=== PATIENT | female | born 1990 | race Caucasian/White ===

== ENCOUNTER → 2017-03-22 | Outpatient (CLI) | payer OTHER ==
--- NOTE | 2017-03-22 14:48 | RAD ---
EXAM: Left breast ultrasound. HISTORY: Left breast tenderness about the nipple and superolaterally. COMPARISON: None. FINDINGS: Sonographic evaluation was performed from the level through the 3:00 position of clinical concern. The exam was also scanned. This reveals only normal appearing dense breast parenchyma. There is no suspicious sonographic finding or pathologic correlate for tenderness. IMPRESSION: 1. BI-RADS Category 1: Negative. 2. Recommend ongoing clinical follow-up of breast tenderness.
== END | disposition home or self-care (01) ==
LOC: US 13:02
PROVIDERS: ATTEND Advanced Practice Midwife
DX: N64.4 Mastodynia (principal); N63.20 Unspecified lump in the left breast, unspecified quadrant
CPT/HCPCS: 76641

== ENCOUNTER → 2017-06-15 | Outpatient (CLI) | payer OTHER ==
--- NOTE | 2017-06-15 12:15 | RAD ---
Complete abdominal ultrasound 06/15/2017 Indication: Intermittent right-sided abdominal pain for months Comparison study: None available Discussion: Ultrasound evaluation of the abdomen was performed. Static images are submitted to PACS. Visualized portions of the pancreas are unremarkable. As portions of the aorta and IVC are unremarkable. Gallbladder is normal in appearance without evidence of wall thickening, stones, or sludge. The liver is unremarkable in appearance. Portal venous flows in the normal direction. Common bile duct is nondilated at 3 mm. No focal hepatic lesions are seen. The liver measures 16 cm longitudinally which is within normal limits. The right kidney is normal appearance measuring 11.2 cm in length. Left kidney is normal in appearance measuring 10.5 cm in length. The spleen is normal in size measuring 9.5 cm longitudinally. A few small scattered calcified splenic granulomata noted. Impression: Normal sonographic appearance of the abdomen
== END | disposition home or self-care (01) ==
LOC: US 11:25
PROVIDERS: ATTEND Advanced Practice Midwife
DX: R10.9 Unspecified abdominal pain (principal)
CPT/HCPCS: 76700

== ENCOUNTER 2018-09-19 10:50 | Emergency (ER) | payer OTHER ==
[2018-09-19] MEDS ORDERED: MECL25TA3 PO (11:22)
[2018-09-19] MEDS ORDERED: NEOM10SO7 AS (11:22)
--- NOTE | 2018-09-19 11:22 | PHYS DOC ---
Past History Past Medical History: GERD Past Surgical History: No Surgical History Smoking: Non-smoker Alcohol Use: None Drug Use: None Adult General Chief Complaint Chief Complaint: EARACHE/EAR PAIN HPI HPI Patient is a 28 year old female who presents with complaint of left ear pain. Patient states that she has been having drainage and pain in the left ear of the past 2 days, however she notes that this has been a recurrent issue. Patient states several years ago she experienced sudden pain and drainage from the left ear. She states that since then she has had recurrent episodes of left ear drainage and fullness. States that she has had decreased hearing from the left ear since this occurred. He notes that she has had problems with drainage related to nasal congestion and allergy symptoms. States that they have worsened again over the past 2 days. Notes that the drainage is clear but can be yellowish at times. Has not followed with a physician since the original episode occurred. Denies any other significant past medical history. Patient notes that she has had fullness in the left ear and slight dizziness. No fever. Review of Systems Review of Systems Constitutional: Denies fever or chills [] Eyes: Denies change in visual acuity, redness, or eye pain [] HENT: Left ear pain, left ear drainage, nasal congestion[] Respiratory: Denies cough or shortness of breath [] Cardiovascular: Denies chest pain or edema[] GI: Denies abdominal pain, nausea, vomiting, bloody stools or diarrhea [] : Denies dysuria or hematuria [] Musculoskeletal: Denies back pain or joint pain [] Integument: Denies rash or skin lesions [] Neurologic: Denies headache, focal weakness or sensory changes [] All other systems were reviewed and found to be within normal limits, except as documented in this note. Allergies Allergies Allergies Coded Allergies Type Severity Reaction Last Updated Verified calamine Allergy Unknown 09/19/18 Yes dextromethorphan Allergy Unknown 09/19/18 Yes hydrocodone Allergy Unknown 09/19/18 Yes latex Allergy Unknown 09/19/18 Yes Uncoded Allergies Type Severity Reaction Last Updated Verified UNKNOWN ANTIBIOTICS Allergy Unknown Itching 09/19/18 Physical Exam Physical Exam Constitutional: Well developed, well nourished, no acute distress, non-toxic appearance. [] HENT: Normocephalic, atraumatic, bilateral external ears normal, left ear canal with mild edema, erythema present, left TM appears distorted but intact, clear l eft middle ear effusion present, right ear canal and TM normal, oropharynx moist, no oral exudates, nose normal. [] Eyes: PERRLA, EOMI, conjunctiva normal, no discharge. [] Neck: Normal range of motion, no tenderness, supple, no stridor. [] Cardiovascular:Heart rate regular rhythm, no murmur [] Lungs & Thorax: Bilateral breath sounds clear to auscultation [] Abdomen: Bowel sounds normal, soft, no tenderness, no masses, no pulsatile masses. [] Skin: Warm, dry, no erythema, no rash. [] Back: No tenderness, no CVA tenderness. [] Extremities: No tenderness, no cyanosis, no clubbing, ROM intact, no edema. [] Neurologic: Alert and oriented X 3, normal motor function, normal sensory function, no focal deficits noted. [] Current Patient Data Vital Signs Vital signs were reviewed and are stable Lab Results Not performed EKG EKG Not performed[] Radiology/Procedures Radiology/Procedures Not performed[] Course & Med Decision Making Course & Med Decision Making Pertinent Labs and Imaging studies reviewed. (See chart for details) Patient's exam shows evidence of acute otitis externa as well as a serous otitis media. Patient will be started on Cortisporin ear drops. Also prescribed meclizine to help with vertigo symptoms. Advised daily use of Zyrtec or Kylah to help reduce mucous production and allergy symptoms. Patient was referred to Dr. Geri Avery of ENT for follow-up in 1-2 weeks for formal and comprehensive evaluation of the recurrent left ear infections. Advised return to emergency department for any worsening symptoms. Patient was understanding and in agreement with treatment plan.[] Dragon Disclaimer Dragon Disclaimer This electronic medical record was generated, in whole or in part, using a voice recognition dictation system. Departure Departure: Impression: Primary Impression: Otitis externa Additional Impression: Serous otitis media Disposition: 01 HOME, SELF-CARE Condition: STABLE Referrals: Lucy Avery MD PCP,NO (PCP) Patient Instructions: Otitis Externa, Otitis Media with Effusion Additional Instructions: Follow-up with Dr. Avery in 1-2 weeks for further evaluation of your recurrent left ear infections. Return to the emergency department for any worsening symptoms. Scripts Meclizine Hcl (MECLIZINE HCL) 25 Mg Tablet 1 TAB PO TID PRN for DIZZINESS, #30 TAB Prov: PINKY POSEY MD 09/19/18 Neomycin/Polymyxin B Sulf/Hc (IDLBKHRH-SPCIOPHTE-OV EAR SOLN) 10 Ml Solution 4 DRP QID for 7 Days, #10 ML Prov: PINKY POSEY MD 09/19/18 Problem Qualifiers Primary Impression: Otitis externa Otitis externa type: unspecified type Chronicity: unspecified Laterality: left Qualified Codes: H60.92 - Unspecified otitis externa, left ear Additional Impression: Serous otitis media Chronicity: unspecified Laterality: left Qualified Codes: H65.92 - Unspecified nonsuppurative otitis media, left ear PINKY POSEY MD September 19, 2018 11:22
[2018-09-19 11:35] VITALS: BP 98/51
== END 2018-09-19 11:35 | disposition home or self-care (01) ==
LOC: ER 10:50
DX: H60.92 Unspecified otitis externa, left ear (principal); H65.92 Unspecified nonsuppurative otitis media, left ear; K21.9 Gastro-esophageal reflux disease without esophagitis; Z88.5 Allergy status to narcotic agent; Z91.040 Latex allergy status; Z88.8 Allergy status to other drugs, medicaments and biological substances
CPT/HCPCS: 99283

== ENCOUNTER 2018-12-09 15:56 | Emergency (ER) | payer OTHER ==
[~2018-12-09] VITALS: Ht 175.3 cm; Wt 75.3 kg
[~2018-12-09 15:56] MED LIST: MECL25TA3 PO; NEOM10SO7 AS
[2018-12-09 16:09] VITALS: BP 109/64
[2018-12-09] MEDS ORDERED: SMZ/TMP 800/160MG TABLET. PO ONE (17:00)
[2018-12-09] MEDS ORDERED: SULF1TAB24 PO (17:02)
[2018-12-09] MEDS ORDERED: DICL50TA4 PO (17:02)
--- NOTE | 2018-12-09 17:02 | PHYS DOC ---
Past History Past Medical History: No Pertinent History, GERD Past Surgical History: Tonsillectomy, Other Smoking: Non-smoker Alcohol Use: None Drug Use: None Adult General Chief Complaint Chief Complaint: SKIN RASH/ABSCESS HPI HPI Patient is a 28-year-old female who presents with complaint of painful skin le jeanie to her left posterior shoulder. She states that initially it started out like a small pimple but then grew in size and became painful. She states that she mashed a lot last night and a lot of pus and blood came out of it. She states that it is still painful and hard to the touch[] Review of Systems Review of Systems Constitutional: Denies fever or chills [] Respiratory: Denies cough or shortness of breath [] Cardiovascular: No additional information not addressed in HPI [] Integument: Positive abscess[] Current Medications Current Medications Current Medications Medications (Trade) Dose Ordered Sig/Bogdan Start Time Stop Time Status Last Admin Dose Admin Trimethoprim/ Sulfamethoxazole (Bactrim Ds) 1 tab 1X ONCE 12/09/18 17:00 12/09/18 17:01 Allergies Allergies Allergies Coded Allergies Type Severity Reaction Last Updated Verified calamine Allergy Unknown 09/19/18 Yes dextromethorphan Allergy Unknown 09/19/18 Yes hydrocodone Allergy Unknown 09/19/18 Yes latex Allergy Unknown 09/19/18 Yes Uncoded Allergies Type Severity Reaction Last Updated Verified UNKNOWN ANTIBIOTICS Allergy Unknown Itching 09/19/18 Physical Exam Physical Exam Constitutional: Well developed, well nourished, no acute distress, non-toxic appearance. [] Cardiovascular:Heart rate regular rhythm, no murmur [] Lungs & Thorax: Bilateral breath sounds clear to auscultation [] Skin: Left posterior shoulder demonstrates an area measuring approximately 2 x 3 cm with redness, induration, tenderness and warmth. There is no fluctuance on exam. [] Current Patient Data Vital Signs Vital Signs Date Time Temp Pulse Resp B/P (MAP) Pulse Ox O2 Delivery O2 Flow Rate FiO2 12/09/18 16:09 98.1 70 18 100 Room Air EKG EKG [] Radiology/Procedures Radiology/Procedures [] Course & Med Decision Making Course & Med Decision Making Pertinent Labs and Imaging studies reviewed. (See chart for details) [] Dragon Disclaimer Dragon Disclaimer This electronic medical record was generated, in whole or in part, using a voice recognition dictation system. Departure Departure: Impression: Primary Impression: Abscess Disposition: 01 HOME, SELF-CARE Condition: STABLE Referrals: PCP,NO (PCP) Patient Instructions: Abscess Scripts Diclofenac Sodium (DICLOFENAC SODIUM) 50 Mg Tablet.dr 1 TAB PO BID PRN for PAIN, #20 TAB Prov: PRIMO WOODY Jr. DO 12/09/18 Sulfamethoxazole/Trimethoprim (BACTRIM DS TABLET) 1 Each Tablet 1 TAB PO BID for INFECTION, #20 TAB Prov: PRIMO WOODY Jr. DO 12/09/18 PRIMO WOODY Jr. DO Dec 09, 2018 17:02
== END 2018-12-09 17:13 | disposition home or self-care (01) ==
LOC: ER 15:56
DX: L02.414 Cutaneous abscess of left upper limb (principal); K21.9 Gastro-esophageal reflux disease without esophagitis; Z88.8 Allergy status to other drugs, medicaments and biological substances; Z88.5 Allergy status to narcotic agent; Z91.040 Latex allergy status
CPT/HCPCS: 99283

== ENCOUNTER 2019-04-02 11:14 | Emergency (ER) | payer OTHER ==
[~2019-04-02] VITALS: Ht 175.3 cm; Wt 71.5 kg
[2019-04-02 11:14] VITALS: BP 117/68
[~2019-04-02 11:14] MED LIST changes: +DICL50TA4 PO; +SULF1TAB24 PO
[2019-04-02] MEDS ORDERED: TRIA15CR2 TP (11:28)
--- NOTE | 2019-04-02 11:28 | PHYS DOC ---
Past History Past Medical History: No Pertinent History, GERD Past Surgical History: Tonsillectomy, Other Smoking: Non-smoker Alcohol Use: None Drug Use: None Adult General Chief Complaint Chief Complaint: SKIN PROBLEM HPI HPI Patient is a pleasant 29-year-old female who presents to the emergency department for evaluation of 2 focal areas of itchiness, on her right neck/trapezius area, which developed over the past 3 days. She denies any pain to the area, and has not had any fevers. She has had MRSA in the past, but this feels differently. She has no other complaints at this time. She did find out that she was last night, her LMP was mid-January. She has no related complaints. Review of Systems Review of Systems Constitutional: Denies fever or chills [] Integument: Denies rash or skin lesions, other than the spots noted in the history of present illness [] Allergies Allergies Allergies Coded Allergies Type Severity Reaction Last Updated Verified calamine Allergy Unknown 09/19/18 Yes dextromethorphan Allergy Unknown 09/19/18 Yes hydrocodone Allergy Unknown 09/19/18 Yes latex Allergy Unknown 09/19/18 Yes Uncoded Allergies Type Severity Reaction Last Updated Verified UNKNOWN ANTIBIOTICS Allergy Unknown Itching 09/19/18 Physical Exam Physical Exam PHYSICAL EXAM: CONSTITUTIONAL: Well developed, well nourished HEAD: normocephalic, atraumatic EENT: PERRL, EOMI. Conjunctivae normal color, sclerae non-icteric; moist mucous membranes. NECK: Supple, non-tender; no meningismus. LUNGS: Lungs CTA, breathing even and unlabored. Normal air movement. HEART: Regular rate and rhythm, no murmur CHEST: No deformity; non-tender ABDOMEN: The abdomen is soft, and non-tender, no masses or bruits. EXTREM: Normal ROM; no deformity, no calf tenderness. Normal pulses palpable in all extremities. There is no pedal edema. SKIN: There are 2 focal lesions on the right trapezius area, wonders cord dollar size, one is Agata size, they're both erythematous, and appear to be consistent with urticarial type lesions, or insect bites, although there are no central puncture wounds that are visualized. The area is nontender there is no fluctuance or surrounding erythema to the skin, making infection unlikely. No other rash; no diaphoresis NEURO: Alert; normal speech and cognition; CN's grossly intact; strength grossly intact without focal deficit. BACK: No CVA TTP. EKG EKG [] Radiology/Procedures Radiology/Procedures [] Course & Med Decision Making Course & Med Decision Making I discussed symptomatic and expectant management with the patient, the need for follow-up and return precautions. Dragsindy Disclaimer Dragon Disclaimer This electronic medical record was generated, in whole or in part, using a voice recognition dictation system. Departure Departure: Impression: Primary Impression: Urticaria Disposition: HOME, SELF-CARE Condition: STABLE Patient Instructions: Pruritic Urticarial Papules and Plaques of , Rash Scripts Triamcinolone Acetonide (TRIAMCINOLONE ACETONIDE) 15 Gm Cream..g. 1 VICENTE TP BID for -, #15 GM Prov: JOSE ALBERTO SEN MD 04/02/19 JOSE ALBERTO SEN MD Apr 02, 2019 11:28
== END 2019-04-02 11:31 | disposition home or self-care (01) ==
LOC: ER 11:14
DX: L50.9 Urticaria, unspecified (principal); K21.9 Gastro-esophageal reflux disease without esophagitis; Z88.8 Allergy status to other drugs, medicaments and biological substances; Z88.5 Allergy status to narcotic agent; Z91.040 Latex allergy status
CPT/HCPCS: 99283

== ENCOUNTER 2021-05-29 06:21 | Emergency (ER) | payer OTHER ==
[~2021-05-29] VITALS: Ht 175.3 cm; Wt 71.5 kg
[~2021-05-29 06:21] MED LIST changes: +MECL-75 PO; -MECL25TA3 PO; +TRIA15CR2 TP
[2021-05-29 06:54] LABS: AMPHETAMINE/METHAMPHETAMINE NEG (NEG); BARBITURATES NEG (NEG); BENZODIAZEPINES NEG (NEG); CANNABINOIDS NEG (NEG); COCAINE NEG (NEG); METHADONE NEG (NEG); OPIATES NEG (NEG); PHENCYCLIDINE NEG (NEG)
[2021-05-29 07:01] LABS: BACTERIA,URINE FEW /HPF (0-FEW); BILIRUBIN,URINE NEG (NEG); CLARITY,URINE CLOUDY; COLOR,URINE YELLOW; GLUCOSE,URINE NEG (NEG); NITRITE,URINE NEG (NEG); SQUAMOUS EPITHELIAL CELL,UR MOD /LPF; UROBILINOGEN,URINE 0.2 mg/dL (0.2 mg/dL); WBC,URINE TNTC /HPF (0-4)
--- NOTE | 2021-05-29 07:02 | PHYS DOC ---
Past History Past Medical History: GERD, MRSA Past Surgical History: Tonsillectomy Smoking: Non-smoker Alcohol Use: None Drug Use: None General Adult EDM: Chief Complaint: URINARY FREQUENCY HPI: HPI: 31-year-old female presents with 2-day history of increased urinary frequency. Patient came in early this morning because she has been having right lower quadrant pain radiating to her back throughout the night. She decided she should come in for evaluation. She has had urinary urgency and frequency with little output each time. On arrival the patient had a fever and is tachycardic. Patient denies any other symptoms or complaints at this time. Review of Systems: Review of Systems: Constitutional: Denies fever or chills Eyes: Denies change in visual acuity HENT: Denies nasal congestion or sore throat Respiratory: Denies cough or shortness of breath Cardiovascular: Denies chest pain or edema GI: Right lower quadrant abdominal pain, nausea, vomiting, bloody stools or diarrhea : Dysuria, urinary frequency Musculoskeletal: Denies back pain or joint pain Integument: Denies rash Neurologic: Denies headache, focal weakness or sensory changes Endocrine: Denies polyuria or polydipsia Lymphatic: Denies swollen glands Psychiatric: Denies depression or anxiety Current Medications: Current Meds: Current Medications Medications (Trade) Dose Ordered Sig/[facility] Start Time Stop Time Status Last Admin Dose Admin Acetaminophen (Tylenol) 1,000 mg 1X ONCE 05/29/21 07:30 05/29/21 07:31 Sodium Chloride 1,000 ml @ 1,000 mls/hr 1X ONCE 05/29/21 07:30 05/29/21 08:29 Allergies: Allergies: Allergies Coded Allergies Type Severity Reaction Last Updated Verified calamine Allergy Unknown 09/19/18 Yes dextromethorphan Allergy Unknown 09/19/18 Yes hydrocodone Allergy Unknown 09/19/18 Yes latex Allergy Unknown 09/19/18 Yes Uncoded Allergies Type Severity Reaction Last Updated Verified UNKNOWN ANTIBIOTICS Allergy Unknown Itching 09/19/18 Physical Exam: PE: Constitutional: Well developed, well nourished, no acute distress, non-toxic appearance. [] HENT: Normocephalic, atraumatic, bilateral external ears normal, oropharynx moist, no oral exudates, nose normal. [] Eyes: PERRLA, EOMI, conjunctiva normal, no discharge. [] Neck: Normal range of motion, no tenderness, supple, no stridor. [] Cardiovascular: Heart rate 130, regular rhythm, no murmur [] Lungs & Thorax: Bilateral breath sounds clear to auscultation [] Abdomen: Bowel sounds normal, soft, suprapubic tenderness, no masses, no pulsatile masses. [] Skin: Warm, dry, no erythema, no rash. [] Back: No tenderness, no CVA tenderness. [] Extremities: No tenderness, no cyanosis, no clubbing, ROM intact, no edema. [] Neurologic: Alert and oriented X 3, normal motor function, normal sensory function, no focal deficits noted. [] Psychologic: Affect normal, judgement normal, mood normal. [] Current Patient Data: Labs: Laboratory Tests Test 05/29/21 06:35 05/29/21 06:40 Urine Opiates Screen Neg (NEG) Urine Methadone Screen Neg (NEG) Urine Barbiturates Neg (NEG) Urine Phencyclidine Screen Neg (NEG) Urine Amphetamine/Methamphetamine Neg (NEG) Urine Benzodiazepines Screen Neg (NEG) Urine Cocaine Screen Neg (NEG) Urine Cannabinoids Screen Neg (NEG) Urine Ethyl Alcohol Neg (NEG) POC Urine HCG, Qualitative hcg negative (Negative) Vital Signs: Vital Signs Date Time Temp Pulse Resp B/P (MAP) Pulse Ox O2 Delivery O2 Flow Rate FiO2 05/29/21 06:37 102.4 130 18 106/71 (83) 99 Room Air EKG: EKG: [] Radiology/Procedures: Radiology/Procedures: [] Impressions: Exam: CT abdomen/pelvis with intravenous contrast Indication: Right lower quadrant pain, urinary urgency. Comparison: None available Technique: Helical CT imaging performed of the abdomen and pelvis after the intravenous administration of 75 mL Omnipaque 350 contrast. Sagittal and coronal reformats were obtained. One or more of the following individualized dose reduction techniques were utilized for this examination: 1. Automated exposure control 2. Adjustment of the mA and/or kV according to patient size 3. Use of iterative reconstruction technique. Findings: Lower chest: The lung bases are clear. The heart is normal in size. Liver: Liver is at the upper limit of normal in size measuring 19 cm. No focal liver lesion. Gallbladder/Biliary Tree: Normal. Pancreas: Normal. Spleen: No splenomegaly. There is calcified splenic granuloma. Adrenal Glands: Normal. Kidneys/Ureters/Bladder: There are patchy areas of hypoattenuation in the kidneys, greater on the right. Mild urothelial thickening and enhancement bilaterally. Mild right and minimal right hydronephrosis. No nephrolithiasis or obstructing calculus visualized. The urinary bladder is normal. Reproductive Organs: Uterus and ovaries are unremarkable for age. Stomach, small bowel, and colon: Stomach, small bowel, appendix, and colon are normal. Vasculature: No aortic aneurysm. Lymph Nodes: No lymphadenopathy. Peritoneum and retroperitoneum: No free fluid or free air. Bones: Normal. IMPRESSION: Urinary tract infection with findings of bilateral pyelonephritis, greater on the right. There is mild right and minimal left hydronephrosis without obstructing calculus. Electronically signed by: Alice Brooks MD (05/29/2021 8:49 AM) [id number] DICTATED AND SIGNED BY: ALICE BROOKS MD DATE: 05/29/21 0833 CC: NIKHIL HUANG DO; PCP,NO ~MTH0 0 Heart Score: C/O Chest Pain: N/A Risk Factors: Risk Factors: DM, Current or recent (<one month) smoker, HTN, HLP, family hist ory of CAD, obesity. Risk Scores: Score 0 - 3: 2.5% MACE over next 6 weeks - Discharge Home Score 4 - 6: 20.3% MACE over next 6 weeks - Admit for Clinical Observation Score 7 - 10: 72.7% MACE over next 6 weeks - Early Invasive Strategies Course & Med Decision Making: Course & Med Decision Making Pertinent Labs and Imaging studies reviewed. (See chart for details) The patient's labs are significant for slightly elevated white count. She is tachycardic she has been given a liter of normal saline. Her heart rate has improved. Her urinalysis suggests UTI. Her CT of the abdomen and pelvis shows bilateral pyelonephritis. I have given her a gram of Rocephin in the emergency room. The patient meets admission criteria, but in discussions with her she really does not want to stay in the hospital because she has a childcare for. She feels as though she can go home and take her antibiotics. I believe this is reasonable. I have informed her that if she gets worse in any way she will need to come back to the hospital and she states verbal understanding. I will discharge her with levofloxacin for 10 days. [] Thong Disclaimer: Thong Disclaimer: This electronic medical record was generated, in whole or in part, using a voice recognition dictation system. Departure Departure: Impression: Primary Impression: Pyelonephritis Disposition: HOME / SELF CARE / HOMELESS Condition: STABLE Referrals: PCP,NO (PCP) Patient Instructions: Pyelonephritis, Adult, [id number] Scripts Levofloxacin (LEVOFLOXACIN) 750 Mg Tablet 1 TAB PO DAILY for pyelonephritis, #10 TAB Prov: NIKHIL HUANG DO 05/29/21 NIKHIL HUANG DO May 29, 2021 07:02
[2021-05-29 07:24] LABS: BASO % 0 % (0-3); EOS # 0.1 x10^3/uL (0.0-0.7); EOS % 1 % (0-3); HEMATOCRIT 35.7 % (36.0-47.0); HEMOGLOBIN 11.8 g/dL (12.0-15.5); LYMPH # 0.9 x10^3/uL (1.0-4.8); LYMPH % 8 % (24-48); MEAN CORPUSCULAR HEMOGLOBIN 31 pg (25-35); MEAN CORPUSCULAR HGB CONC 33 g/dL (31-37); MEAN CORPUSCULAR VOLUME 92 fL (79-100); MONO # 1.4 x10^3/uL (0.0-1.1); MONO % 12 % (0-9); NEUT # 8.8 x10^3uL (1.8-7.7); NEUT % 79 % (31-73); PLATELET COUNT 321 x10^3/uL (140-400); RED BLOOD COUNT 3.87 x10^6/uL (3.50-5.40); RED CELL DISTRIBUTION WIDTH 14.3 % (11.5-14.5); WHITE BLOOD COUNT 11.3 x10^3/uL (4.0-11.0)
[2021-05-29] MEDS ORDERED: ACETAMINOPHEN 500 MG TABLET PO ONE (07:30)
[2021-05-29] MEDS ORDERED: IV NORMAL SALINE 1,000ML 1,000 ML IV ONE (07:30)
[2021-05-29 07:31] LABS: CALCIUM 8.9 mg/dL (8.5-10.1); CREATININE 1.1 mg/dL (0.6-1.0); GFR 58.7; POTASSIUM 3.5 mmol/L (3.5-5.1)
[2021-05-29 07:37] LABS: ALBUMIN/GLOBULIN RATIO 0.7 (1.0-1.7); TOTAL BILIRUBIN 0.4 mg/dL (0.2-1.0); TOTAL PROTEIN 7.4 g/dL (6.4-8.2)
[2021-05-29 07:58] LABS: INFLUENZA A PATIENT NEGATIVE (NEGATIVE); INFLUENZA B PATIENT NEGATIVE (NEGATIVE)
[2021-05-29] MEDS ORDERED: IOHEXOL 300 MG/ML 75 ML VIAL. IV ONE (08:00)
--- NOTE | 2021-05-29 08:52 | RAD ---
Exam: CT abdomen/pelvis with intravenous contrast Indication: Right lower quadrant pain, urinary urgency. Comparison: None available Technique: Helical CT imaging performed of the abdomen and pelvis after the intravenous administratio n of 75 mL Omnipaque 350 contrast. Sagittal and coronal reformats were obtained. One or more of the following individualized dose reduction techniques were utilized for this examinat ion: 1. Automated exposure control 2. Adjustment of the mA and/or kV according to patient size 3. Use of iterative reconstruction technique. Findings: Lower chest: The lung bases are clear. The heart is normal in size. Liver: Liver is at the upper limit of normal in size measuring 19 cm. No focal liver lesion. Gallbladder/Biliary Tree: Normal. Pancreas: Normal. Spleen: No splenomegaly. There is calcified splenic granuloma. Adrenal Glands: Normal. Kidneys/Ureters/Bladder: There are patchy areas of hypoattenuation in the kidneys, greater on the rig ht. Mild urothelial thickening and enhancement bilaterally. Mild right and minimal right hydronephros is. No nephrolithiasis or obstructing calculus visualized. The urinary bladder is normal. Reproductive Organs: Uterus and ovaries are unremarkable for age. Stomach, small bowel, and colon: Stomach, small bowel, appendix, and colon are normal. Vasculature: No aortic aneurysm. Lymph Nodes: No lymphadenopathy. Peritoneum and retroperitoneum: No free fluid or free air. Bones: Normal. IMPRESSION: Urinary tract infection with findings of bilateral pyelonephritis, greater on the right. There is mild right and minimal left hydronephrosis without obstructing calculus. Electronically signed by: Alice Brooks MD (05/29/2021 8:49 AM) [id number]
[2021-05-29] MEDS ORDERED: IV NORMAL SALINE 50ML 50 ML ONE (09:04)
[2021-05-29] MEDS ORDERED: cefTRIAXone SODIUM 1 GM VIAL ONE (09:04)
[2021-05-29 09:09] VITALS: BP 101/53
[2021-05-29] MEDS ORDERED: LEVO750T5 PO (09:30)
== END 2021-05-29 09:40 | disposition home or self-care (01) ==
LOC: ER 06:21
DX: N12 Tubulo-interstitial nephritis, not specified as acute or chronic (principal); K21.9 Gastro-esophageal reflux disease without esophagitis; Z20.822 Contact with and (suspected) exposure to COVID-19; Z88.5 Allergy status to narcotic agent; Z91.040 Latex allergy status; Z88.8 Allergy status to other drugs, medicaments and biological substances
CPT/HCPCS: 36415; 74177; 80053; 80307; 81001; 81025; 83605; 85025; 87040; 87086; 87186; 87428; 96361; 96365; 99285; J0696; J7030; Q9967

== ENCOUNTER 2021-06-23 19:25 | Emergency (ER) | payer OTHER ==
[~2021-06-23] VITALS: Ht 175.3 cm; Wt 69.5 kg
[~2021-06-23 19:25] MED LIST changes: +LEVO750T5 PO
--- NOTE | 2021-06-23 19:34 | PHYS DOC ---
Past History Past Medical History: GERD, MRSA Past Surgical History: Tonsillectomy Smoking: Non-smoker Alcohol Use: None Drug Use: None Adult General HPI HPI Patient is a 31-year-old female with a history of multiple UTIs who presents with bilateral flank pain and frequent urination. States she was treated for urinary tract infection about a month ago and finished her treatment. States she still had a little dysuria since then and some mild white discharge. States she is had that for 2 and has had bacterial vaginosis several times. States she is never had a sexually transmitted infection however she did recently have unprotected sex with someone a few times and is no longer with them and does not know of if he had any STIs. States that she would just like to be treated for these. Denies recent travels, traumas, illness, fevers, chest pain, shortness of breath, abdominal pain, nausea, vomiting, diarrhea. Review of Systems Review of Systems Review of systems otherwise unremarkable except noted in HPI Allergies Allergies Allergies Coded Allergies Type Severity Reaction Last Updated Verified calamine Allergy Unknown 09/19/18 Yes dextromethorphan Allergy Unknown 09/19/18 Yes hydrocodone Allergy Unknown 09/19/18 Yes latex Allergy Unknown 09/19/18 Yes Uncoded Allergies Type Severity Reaction Last Updated Verified UNKNOWN ANTIBIOTICS Allergy Unknown Itching 09/19/18 Physical Exam Physical Exam Constitutional: Well developed, well nourished, no acute distress, non-toxic appearance. [] HENT: Normocephalic, atraumatic, bilateral external ears normal, oropharynx moist, no oral exudates, nose normal. [] Eyes: conjunctiva normal, no discharge. [] Neck: Normal range of motion, no tenderness, supple, no stridor. [] Cardiovascular:Heart rate regular rhythm, no murmur [] Lungs & Thorax: Bilateral breath sounds clear to auscultation [] Abdomen:soft, no tenderness, no masses, no pulsatile masses. [] Skin: Warm, dry, no erythema, no rash. [] Back: no CVA tenderness. [] Extremities: No tenderness, no cyanosis, no clubbing, ROM intact, no edema. [] Neurologic: Alert and oriented X 3, normal motor function, normal sensory function, no focal deficits noted. [] Psychologic: Affect normal, judgement normal, mood normal. [] EKG EKG [] Radiology/Procedures Radiology/Procedures [] Heart Score C/O Chest Pain: No Risk Factors: Risk Factors: DM, Current or recent (<one month) smoker, HTN, HLP, family history of CAD, obesity. Risk Scores: Risk Factors: DM, Current or recent (<one month) smoker, HTN, HLP, family history of CAD, obesity. Course & Med Decision Making Course & Med Decision Making Patient is a 31-year-old female who presents with urinary symptoms and flank pain Vital signs nonconcerning. Physical exam noted above. Urinalysis not suggestive of urinary tract infection. Urine gonorrhea/chlamydia/trichomonas pending Patient opted for treatment of these in the emergency department. Advised to follow-up in the morning with primary care physician update on ED visit and reevaluation. Advised that it will take approximately 24 hours for results to come back on a test and she would be called. Gave return precautions to the ED. Patient grateful, verbalized understanding and agreed with plan of discharge. [] Dragon Disclaimer Dragon Disclaimer This electronic medical record was generated, in whole or in part, using a voice recognition dictation system. Departure Departure: Impression: Primary Impression: Contact with and (suspected) exposure to infections with a predominantly sexual mode of transmission Disposition: 01 HOME / SELF CARE / HOMELESS Condition: GOOD Referrals: PCP,CAROLINE (PCP) DINO ESCOBEDO Patient Instructions: Sexually Transmitted Disease Additional Instructions: Thank you for coming into the emergency department tonight and allowing us to take care of you. Please read the attached information carefully to go over things we discussed. You were treated in the emergency department for chlamydia, gonorrhea, trichomonas and bacterial vaginosis at your request. Your results will take about 24 hours to come back and you will be called to let you know the results. Please follow-up in the morning with your primary care physician update on your ED visit and set up a follow-up for reevaluation. Please come back with new or concerning symptoms as discussed. Scripts Metronidazole (METRONIDAZOLE) 500 Mg Tablet 1 TAB PO BID for BV for 7 Days, #13 TAB 0 Refills Prov: TORIN WARD MD 06/23/21 TORIN WARD MD Jun 23, 2021 19:34
[2021-06-23 21:01] LABS: BACTERIA,URINE FEW /HPF (0-FEW); CLARITY,URINE CLEAR; COLOR,URINE YELLOW; GLUCOSE,URINE NEG (NEG); NITRITE,URINE NEG (NEG); SQUAMOUS EPITHELIAL CELL,UR MOD /LPF; UROBILINOGEN,URINE 0.2 mg/dL (0.2 mg/dL)
[2021-06-23] MEDS ORDERED: cefTRIAXone IM 500 MG VIAL. IM ONE (21:30)
[2021-06-23] MEDS ORDERED: metroNIDAZOLE 500 MG TABLET PO ONE (21:30)
[2021-06-23] MEDS ORDERED: AZITHROMYCIN 250 MG TABLET. PO ONE (21:30)
[2021-06-23] MEDS ORDERED: METR-34 PO (21:34)
[2021-06-23 22:20] VITALS: BP 130/93
== END 2021-06-23 22:20 | disposition home or self-care (01) ==
LOC: ER 19:25
DX: Z20.2 Contact with and (suspected) exposure to infections with a predominantly sexual mode of transmission (principal); K21.9 Gastro-esophageal reflux disease without esophagitis; Z87.440 Personal history of urinary (tract) infections; Z88.1 Allergy status to other antibiotic agents; Z91.040 Latex allergy status; Z88.5 Allergy status to narcotic agent; Z88.8 Allergy status to other drugs, medicaments and biological substances
CPT/HCPCS: 36415; 81001; 81025; 87491; 87591; 96372; 99283; J0696

== ENCOUNTER 2021-09-07 16:22 | Emergency (ER) | payer OTHER ==
[~2021-09-07] VITALS: Ht 175.3 cm; Wt 73.0 kg
[~2021-09-07 16:22] MED LIST changes: +METR-34 PO
--- NOTE | 2021-09-07 16:56 | PHYS DOC ---
Past History Past Medical History: GERD, MRSA Past Surgical History: No Surgical History Smoking: Non-smoker Alcohol Use: None Drug Use: None General Adult EDM: Chief Complaint: MULTIPLE COMPLAINTS HPI: HPI: Patient is a 31-year-old female presents with right knee pain and headache. Patient states that she has a history of migraines. Patient took ibuprofen at noon today. Rating pain 2/10. Denies light sensitivity, nausea or vomiting. Patient states that the ibuprofen helped with the pain. Patient's right knee pain is also chronic, denies injury. "I was told he had tendinitis". 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 Patient still has range of motion intact. Patient is able to bear weight. States that she has a knee brace at home that she sometimes wears. Patient does not currently have a PCP. Denies all other health history. Review of Systems: Review of Systems: ROS At least 10 ROS systems have been reviewed and are negative except as documented in the HPI. General: Negative except as outlined in HPI above. Skin: Negative except as outlined in HPI above. HEENT: Negative except as outlined in HPI above. Neck: Negative except as outlined in HPI above. Respiratory: Negative except as outlined in HPI above.. Cardiovascular: Negative except as outlined in HPI above. Abdomen: Negative except as outlined in HPI above. : Negative except as outlined in HPI above. Back/MSK: Negative except as outlined in HPI above. Neuro: Negative except as outlined in HPI above. Psych: Negative except as outlined in HPI above. Allergies: Allergies: Allergies Coded Allergies Type Severity Reaction Last Updated Verified calamine Allergy Unknown 09/19/18 Yes dextromethorphan Allergy Unknown 09/19/18 Yes hydrocodone Allergy Unknown 09/19/18 Yes latex Allergy Unknown 09/19/18 Yes Uncoded Allergies Type Severity Reaction Last Updated Verified UNKNOWN ANTIBIOTICS Allergy Unknown Itching 09/19/18 Physical Exam: PE: Constitutional: Well developed, well nourished, no acute distress, non-toxic appearance. [] HENT: Normocephalic, atraumatic, bilateral external ears normal, oropharynx moist, no oral exudates, nose normal. [] Eyes: PERRLA, EOMI, conjunctiva normal, no discharge. [] Neck: Normal range of motion, no tenderness, supple, no stridor. [] Cardiovascular:Heart rate regular rhythm, no murmur [] Lungs & Thorax: Bilateral breath sounds clear to auscultation [] Abdomen: Bowel sounds normal, soft, no tenderness, no masses, no pulsatile masses. [] Skin: Warm, dry, no erythema, no rash. [] Back: No tenderness, no CVA tenderness. [] Extremities: Right knee tenderness, no injury, ROM intact, no edema. [] Neurologic: Alert and oriented X 3, normal motor function, normal sensory function, no focal deficits noted. [] Psychologic: Affect normal, judgement normal, mood normal. [] EKG: EKG: [] Radiology/Procedures: Radiology/Procedures: [] Heart Score: C/O Chest Pain: No Risk Factors: Risk Factors: DM, Current or recent (<one month) smoker, HTN, HLP, family history of CAD, obesity. Risk Scores: Score 0 - 3: 2.5% MACE over next 6 weeks - Discharge Home Score 4 - 6: 20.3% MACE over next 6 weeks - Admit for Clinical Observation Score 7 - 10: 72.7% MACE over next 6 weeks - Early Invasive Strategies Course & Med Decision Making: Course & Med Decision Making Pertinent Labs and Imaging studies reviewed. (See chart for details) [] 31-year-old male presents with right knee pain and history of migraine headaches. Patient states that pain is a 2 out of 10 with last dose of ibuprofen at noon today. Right knee pain is a chronic issue. Denies injury. Educated patient on RICE. Patient does not have a PCP. I sent patient home with a referral list for PCPs. Patient is also requesting a work note for the next 2 days. Dragon Disclaimer: DragTinybop Disclaimer: This electronic medical record was generated, in whole or in part, using a voice recognition dictation system. Departure Departure: Impression: Primary Impression: Migraine Qualified Codes: G43.909 - Migraine, unspecified, not intractable, without status migrainosus Additional Impression: Knee tendonitis Disposition: HOME / SELF CARE / HOMELESS Condition: STABLE Referrals: PCP,NO (PCP) Patient Instructions: Migraine Headache Additional Instructions: You are seen emergency room for a migraine along with knee pain. You were given IM Toradol. Continue using your knee brace at home. Rest, use ice, elevate to help with swelling. Follow-up with the PCP we have recommended so that you can schedule further work-up and migraine management. Return emergency room with worsening symptoms or concerns. EMERGENCY DEPARTMENT GENERAL DISCHARGE INSTRUCTIONS Thank you for coming to [facility] (ED) today and trusting us with you care. We trust that you had a positivie experience in our Emergency Department. If you wish to speak to the department management, you may call the director at [phone]. YOUR FOLLOW UP INSTRUCTIONS ARE FOLLOWS: 1. Do you have a private Doctor? If you do not have a private doctor, please ask for a resource list of physicians or clinics that may be able to assist you with follow up care. 2. The Emergency Physician has interpreted your x-rays. The X-Ray specialist will also review them. If there is a change in the findings, you will be notified in 48 hours when at all possible. 3. A lab test or culture has been done, your results will be reviewed and you will be notified if you need a change in treatment. ADDITIONAL INSTRUCTIONS AND INFORMATION: 1. Your care today has been supervised by a physician who is specially trained in emergency care. Many problems require more than one evaluation for a complete diagnosis and treatment. We recommend that you schedule your follow up appointment as recommended to ensure complete treatment of you illness or injury. If you are unable to obtain follow up care and continue to have a problem, or if your condition worsens, we recommend that you return to the ED. 2. We are not able to safely determine your condition over the phone nor are we able to give sound medical advice over the phone. For these safety reasons, if you call for medical advice we will ask you to come to the ED for further evaluation. 3. If you have any questions regarding these discharge instructions please call the ED at [phone]. SAFETY INFORMATION: In the interest of safety, wellness, and injury prevention; we encourage you to wear your sealbelt, if you smoke; quite smoking, and we encourage family to use a protective helmet for bicycling and other sporting events that present an increased risk for head injury. IF YOUR SYMPTOMS WORSEN OR NEW SYMPTOMS DEVELOP, OR YOU HAVE CONCERNS ABOUT YOUR CONDITION; OR IF YOUR CONDITION WORSENS WHILE YOU ARE WAITING FOR YOUR FOLLOW UP APPO INTMENT; EITHER CONTACT YOUR PRIMARY CARE DOCTOR, THE PHYSICIAN WHOSE NAME AND NUMBER YOU WERE GIVEN, OR RETURN TO THE ED IMMEDIATELY. SYLVIA LEDESMA APRN September 07, 2021 16:56
[2021-09-07] MEDS ORDERED: KETOROLAC 60 MG/2 ML VIAL. IM ONE (17:00)
== END 2021-09-07 17:45 | disposition home or self-care (01) ==
LOC: ER 16:22
DX: G43.909 Migraine, unspecified, not intractable, without status migrainosus (principal); M76.9 Unspecified enthesopathy, lower limb, excluding foot; K21.9 Gastro-esophageal reflux disease without esophagitis; Z88.5 Allergy status to narcotic agent; Z91.040 Latex allergy status; Z88.8 Allergy status to other drugs, medicaments and biological substances
CPT/HCPCS: 96372; 99283; J1885